=== PATIENT | male | born 1945 | race Caucasian/White ===

== ENCOUNTER 2022-04-29 14:59 | Inpatient (IN) | payer MEDICARE, OTHER ==
--- NOTE | 2022-04-29 15:21 | ED Physician Documentation ---
PD HPI Fall - Stated complaint Stated Complaint: GLF, R SIDE PAIN - History obtained from History obtained from: Family - History of Present Illness Mechanism of injury: Lost balance Fall distance: Standing position Where injury occurred: Home Timing - onset: How many days ago (2) Injury(ies) location: Chest, Abdomen Quality of pain: Pain Associated symptoms: No: LOC, AMS, Amnesia, Seizures, Ear drainage, Nasal drainage, Neck pain, Weakness, Paresthesias, Dyspnea, Nausea / vomiting, Hemat emesis, Abdominal distension Symptoms improve with: Rest Worsens with: Movement, Palpation Contributing factors: No: Anticoagulated Similar symptoms before: Has not had sx before Recently seen: Not recently seen - Additional information Additional information: Previously well Juanito Douglas is a 76-year-old male with advanced dementia. He has a history of some benign prostatic hypertrophy as well as some stents in his aorta and his iliacs. He was in his home 2 nights ago and he was shuffling wandering away from his bed and his went to redirect him and he collapsed and fell onto his right side. He is complaining of pain to the right side with movement. Review of Systems Constitutional: denies: Fever Eyes: denies: Decreased vision Ears: denies: Ear pain Nose: denies: Congestion Throat: denies: Sore throat Cardiac: reports: Chest pain / pressure. denies: Palpitations, Pedal edema, Calf pain Respiratory: denies: Dyspnea, Cough GI: reports: Abdominal Pain. denies: Vomiting, Diarrhea : denies: Dysuria, Frequency PD PAST MEDICAL HISTORY - Allergies Allergies/Adverse Reactions: Allergies Allergy/AdvReac Type Severity Reaction Status Date / Time acetaminophen [From Percocet] AdvReac Unknown Verified 04/29/22 16:35 oxycodone [From Percocet] AdvReac Unknown Verified 04/29/22 16:35 PD ED PE NORMAL - Vitals Vital signs reviewed: Yes - General General: No acute distress, Well developed/nourished, Other (standing in the ED the patient is clutching the right side. 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 No noncontrast evidence of solid organ injury. Moderate abdominal aortic aneurysm with aortobiiliac stent graft in place large amount of fecal debris in the right and transverse colon without evidence of small bowel obstruction), EMP read indepedently, See rad report CT chest w/o Radiology: Prelim report reviewed (Impression: 1. Posterior lateral 10th 11th and 12th posterior rib fractures associated with platelike atelectasis atelectasis in both lungs no pneumothorax), EMP read indepedently, See rad report PD MEDICAL DECISION MAKING - ED course Complexity details: reviewed results, re-evaluated patient, considered differential, d/w patient, d/w family ED course: 76-year-old male Juanito mcduffie has had a fall in his home and has broken 3 ribs posteriorly. He has some appearance of atelectasis on the right side. The patient's dementia is severe he mostly mumbles and occasionally brings 2 or 3 words together. He is not able to respond to questions with any appropriate answer. I was able to consult with our surgeon Dr. Mateus Angelo who will admit the patient to the hospital for conservative care. The patient is DNR. Departure - Departure Disposition: 66 [facility] DC/Xfer Clinical Impression: Traumatic closed fracture of multiple ribs with minimal displacement Qualifiers: Encounter type: initial encounter Laterality: right Qualified Code(s): S22.41XA - Multiple fractures of ribs, right side, initial encounter for closed fracture Condition: Stable
[2022-04-29] MEDS ORDERED: KETOROLAC 60 MG/2 ML VIAL IM STA (15:27)
[2022-04-29] MEDS ORDERED: LORazepam 2 MG/ML VIAL IM STA ×2 (15:28→16:08)
--- NOTE | 2022-04-29 17:05 | CT Report ---
PROCEDURE: CHEST WO INDICATIONS: fall R pain above and below the diaphragm TECHNIQUE: Noncontrast 1mm axial images were acquired from the pulmonary apices to the posterior costophrenic an gles. Axial 5 mm soft tissue kernel reconstructions were performed as well as 8 mm axial MIP and cor onal and sagittal 5 mm reformations. For radiation dose reduction, the following was used: automate d exposure control, adjustment of mA and/or kV according to patient size. COMPARISON: None FINDINGS: Image quality: Excellent. Lungs and pleura: Bibasilar platelike atelectasis. There is minimal pleural thickening noted anterior right middle lobe. No pneumothorax. Mediastinum: Heart size is normal. No pericardial effusion. No mediastinal adenopathy by size crit eria. Thoracic aorta and central pulmonary arteries are normal in size. Esophagus is normal in scar ring vascular calcification noted in the aortic arch. No aneurysm. Caliber. No hiatal hernia. Super ior mediastinal vascular clips present Bones and chest wall: No suspicious bony lesions. No vertebral body compression fractures. No axil tyrone or supraclavicular adenopathy by size criteria. The thyroid is normal in size and there are no incidental findings. Right 10th, 11th and 12th rib fractures posterolaterally. The 10th rib is fractu red in [address] IMPRESSION: 1. Right posterior lateral 10th, 11th and 12th posterior rib fractures associated with platelike atel ectasis both lung bases. No pneumothorax. Reviewed by: Frank Barrera MD on 04/29/2022 4:04 PM YINKA Approved by: Frank Barrera MD on 04/29/2022 4:04 PM AKDT Station ID: [id number]
--- NOTE | 2022-04-29 17:10 | CT Report ---
PROCEDURE: CT abdomen and pelvis without contrast INDICATIONS: fall onto R side pain above and below diaphram TECHNIQUE: Noncontrast 5 mm thick sections acquired from the diaphragms to the symphysis. 5 mm coronal and sagi ttal reformats were then performed. For radiation dose reduction, the following was used: automated exposure control, adjustment of mA and/or kV according to patient size. COMPARISON: None. FINDINGS: Image quality: Excellent. ABDOMEN: Solid organs: Liver and spleen are normal in size. Gallbladder not well visualized Pancreas is nor mal in contours. No adrenal nodules. Kidneys are normal in size, without hydronephrosis or nephroli thiasis. 2.5 cm simple cyst noted in the right hepatic lobe. No noncontrast evidence of solid organ injury bilateral renal cysts measure up to 4.5 cm on the right. No hydronephrosis Peritoneum and bowel: Unenhanced bowel loops demonstrate normal wall thickness and caliber. No free fluid or air. Moderate to large amount of fecal debris present in the right and transverse colon. Nodes and vessels: No retroperitoneal or mesenteric adenopathy by size criteria. Infrarenal aortic a bdominal aneurysm noted with aortobiiliac stent graft in place. Patency is not evaluated without cont rast. Surgical clips present in the pelvis. Miscellaneous: No ventral hernias. PELVIS: Genitourinary: Bladder wall thickness is normal. Miscellaneous: No inguinal hernias or adenopathy. Bones: No suspicious bony lesions. No vertebral body compression fractures. Advanced degenerative d isc disease and arthropathy in the lower lumbar spine. No fracture. IMPRESSION: 1. No noncontrast evidence of solid organ injury. 2. Moderate abdominal aortic aneurysm with aortobiiliac stent graft in place. 3. Large amount of fecal debris in the right and transverse colon without evidence of small bowel obs truction. Reviewed by: Frank Barrera MD on 04/29/2022 4:09 PM YINKA Approved by: Frank Barrera MD on 04/29/2022 4:09 PM AKASHKAN Station ID: [id number]
[2022-04-29 19:20] LABS: B. PARAPERTUSSIS- RESP PCR PAN NOT DETECTED; B. PERTUSSIS- RESP PCR PANEL NOT DETECTED; C. PNEUMONIAE- RESP PCR PANEL NOT DETECTED; CORONAVIRUS 229E-RESP PCR NOT DETECTED; CORONAVIRUS HKU1-RESP PCR NOT DETECTED; CORONAVIRUS NL63-RESP PCR NOT DETECTED; CORONAVIRUS OC43-RESP PCR NOT DETECTED; HUMAN METAPNEUMOVIRUS NOT DETECTED; INFLUENZA A- RESP PCR PANEL NOT DETECTED; INFLUENZA B - RESP PCR PANEL NOT DETECTED; M. PNEUMONIAE- RESP PCR PANEL NOT DETECTED; PARAINFLUENZA VIRUS 1 NOT DETECTED; PARAINFLUENZA VIRUS 2 NOT DETECTED; PARAINFLUENZA VIRUS 3 NOT DETECTED; PARAINFLUENZA VIRUS 4 NOT DETECTED; RHINOVIRUS/ENTEROVIRUS NOT DETECTED; RSV- RESP PCR PANEL NOT DETECTED; SARS-CoV-2 -RESP PCR PANEL NOT DETECTED
[2022-04-29] MEDS ORDERED: SODIUM CHLORIDE FLUSH 0.9% 10 ML SYRINGE IVP PRN (19:59)
[2022-04-29] MEDS ORDERED: HYDROmorphone 0.5 MG/0.5 ML SYRINGE IVP PRN (20:05)
[2022-04-29] MEDS ORDERED: HYDROmorphone 2 MG TABLET PO PRN (20:06)
[2022-04-29] MEDS ORDERED: risperiDONE 0.25 MG TABLET PO PRN (20:10)
[2022-04-29] MEDS ORDERED: traZODone 50 MG TABLET PO PRN (20:16)
--- NOTE | 2022-04-29 20:20 | HISTORY & PHYSICAL EXAMINATION ---
Chief Complaint - Chief Complaint Chief Complaint: pain and difficulty coughing per family History of Present Illness - Admitted From Admitted From:: ed - History Obtained From Records Reviewed: yes History obtained from: family Exam Limitations: dementia - History of Present Illness HPI Comment/Other: dementia and fall. not doing well at home. work up right rib fractures History - Past Medical History Neuro: reports: Dementia Other Past Medical History: cardiac stent Meds/Allgy - Allergies Allergies/Adverse Reactions: Allergies Allergy/AdvReac Type Severity Reaction Status Date / Time acetaminophen [From Percocet] AdvReac Unknown Verified 04/29/22 16:35 oxycodone [From Percocet] AdvReac Unknown Verified 04/29/22 16:35 Review of Systems - Other Findings Other Findings: 10 pt ros as above otherwise unremarkable Exam - Vital Signs Reviewed Vital Signs: Yes Vital Signs: Vital Signs x48h Temp Pulse Resp BP Pulse Ox 04/29/22 19:05 57 L 18 130/77 100 04/29/22 17:30 71 16 131/85 H 100 04/29/22 15:30 37.2 C 69 16 109/77 100 04/29/22 15:22 37.2 C 69 16 109/77 100 - Physical Exam General Appearance: positive: Other (resting comfortably) ENT: positive: No signs of dehydration Neck: positive: No JVD, Trachea midline Respiratory: positive: No respiratory distress, Breath sounds nml Cardiovascular: positive: Regular rate & rhythm Abdomen: positive: Non-tender, No distention Neurologic/Psychiatric: positive: Other (resting comfortably. per family ambulatory. does not talk)
[2022-04-29] MEDS: D5.45NS W/20 MEQ KCL 1,000 ML IV SCH (21:20)
[2022-04-29] MEDS: MEMANTINE 5 MG TABLET PO SCH (22:42)
[2022-04-29] MEDS: KETOROLAC 15 MG/ML VIAL IVP SCH (23:45)
[2022-04-29] MEDS: SODIUM CHLORIDE FLUSH 0.9% 10 ML SYRINGE IVP SCH (23:46)
[2022-04-30] MEDS: KETOROLAC 15 MG/ML VIAL IVP SCH ×3 (06:54→17:31)
[2022-04-30 07:19] LABS: CALCIUM 9.3 mg/dL (8.5-10.3); POTASSIUM 4.2 mmol/L (3.5-5.0)
[2022-04-30] MEDS: D5.45NS W/20 MEQ KCL 1,000 ML IV SCH (08:00)
--- NOTE | 2022-04-30 08:22 | XRAY Report ---
PROCEDURE: Chest 1 View X-Ray INDICATIONS: fall with rib fxs TECHNIQUE: One view of the chest was acquired. COMPARISON: None FINDINGS: Surgical changes and devices: Mediastinal surgical clips. Study is limited by rotation Lungs and pleura: No pleural effusions or pneumothorax. Lungs are clear. Mediastinum: Mediastinal contours appear normal. Heart size is normal. Bones and chest wall: No suspicious bony lesions. Overlying soft tissues appear unremarkable. IMPRESSION: No acute cardiopulmonary findings Limited exam Reviewed by: Frank Barrera MD on 04/30/2022 7:20 AM AKASHKAN Approved by: Frank Barrera MD on 04/30/2022 7:20 AM AKDT Station ID: [id number]
[2022-04-30] MEDS: ENOXAPARIN 40 MG/0.4 ML SYRINGE SUBQ SCH (09:28)
[2022-04-30] MEDS: MEMANTINE 5 MG TABLET PO SCH ×2 (09:29→21:48)
[2022-04-30] MEDS: polyethylene glycoL 3350 17 GM PACKET PO SCH (09:29)
[2022-04-30] MEDS: SODIUM CHLORIDE FLUSH 0.9% 10 ML SYRINGE IVP SCH ×2 (09:30→17:31)
[2022-04-30] MEDS: FINASTERIDE 5 MG TABLET PO SCH (09:30)
--- NOTE | 2022-04-30 13:08 | PROVIDER PROGRESS NOTE ---
Subjective - Prog Note Date Prog Note Date: 04/30/22 - Subjective Pt reports feeling: No change Objective - Vital Signs/Intake & Output Reviewed Vital Signs: Yes Vital Signs: Vital Signs x48h Temp Pulse Resp BP Pulse Ox 04/30/22 08:00 36.2 C L 52 L 16 130/66 99 Intake & Output: Intake & Output 04/27/22 04/28/22 04/29/22 04/30/22 23:59 23:59 23:59 23:59 Intake Total 1250 Balance 1250 - Objective General Appearance: positive: Alert, Mild distress, Other (pain with coughing) Eyes Bilateral: positive: PERRL, EOMI Neck: positive: No JVD, Trachea midline Respiratory: positive: No respiratory distress Abdomen: positive: Non-tender, No distention Neurologic/Psychiatric: positive: Other (no focal deficits. does not communicate or follow commands per his baseline able to swallow safely) - Lab Results Fish Bones: 04/30/22 06:55 Other Labs: Lab Results x24hrs 04/30/22 04/29/22 Range/Units 06:55 18:20 Sodium 140 (135-145) mmol/L Potassium 4.2 (3.5-5.0) mmol/L Chloride 106 (101-111) mmol/L Carbon Dioxide 25 (21-32) mmol/L Anion Gap 9.0 (6-13) BUN 23 H (6-20) mg/dL Creatinine 1.0 (0.6-1.2) mg/dL Estimated GFR (MDRD) 72 L (>89) Glucose 105 H (70-100) mg/dL Calcium 9.3 (8.5-10.3) mg/dL Nasal Adenovirus (PCR) NOT DETECTED Nasal B. parapertussis DNA (PCR) NOT DETECTED Nasal Coronavir 229E PCR NOT DETECTED Nasal Coronavir HKU1 PCR NOT DETECTED Nasal Coronavir NL63 PCR NOT DETECTED Nasal Coronavir OC43 PCR NOT DETECTED Nasal Enterovir/Rhinovir PCR NOT DETECTED Nasal Influenza B PCR NOT DETECTED Nasal Influenza A PCR NOT DETECTED Nasal Parainfluen 1 PCR NOT DETECTED Nasal Parainfluen 2 PCR NOT DETECTED Nasal Parainfluen 3 PCR NOT DETECTED Nasal Parainfluen 4 PCR NOT DETECTED Nasal RSV (PCR) NOT DETECTED Nasal B.pertussis DNA PCR NOT DETECTED Nasal C.pneumoniae (PCR) NOT DETECTED Taco Human Metapneumo PCR NOT DETECTED Nasal M.pneumoniae (PCR) NOT DETECTED Nasal SARS-CoV-2 (PCR) NOT DETECTED Assessment/Plan - Problem List (1) Traumatic closed fracture of multiple ribs with minimal displacement Impression: fall with rib fractures. still painful requiring iv pain meds plan pt consult social work consult contiuned inpatient care with iv pain meds. inpatient admit Qualifiers: Encounter type: initial encounter Laterality: right Qualified Code(s): S22.41XA - Multiple fractures of ribs, right side, initial encounter for closed fracture
[2022-04-30] MEDS ORDERED: LORazepam 2 MG/ML VIAL IVP PRN (16:19)
[2022-04-30] MEDS: risperiDONE 0.25 MG TABLET PO SCH ×2 (16:31→21:48)
[2022-04-30] MEDS ORDERED: risperiDONE 0.25 MG TABLET PO SCH (21:00)
[2022-04-30] MEDS: DOCUSATE SODIUM 250 MG CAPSULE PO SCH (21:47)
[2022-04-30] MEDS: FAMOTIDINE 20 MG TABLET PO SCH (21:48)
[2022-04-30] MEDS: SENNA 8.6 MG TABLET PO SCH (21:48)
[2022-05-01] MEDS: SODIUM CHLORIDE FLUSH 0.9% 10 ML SYRINGE IVP SCH ×3 (00:25→18:50)
[2022-05-01] MEDS ORDERED: BISACODYL 10 MG SUPP PR ONE (09:00)
[2022-05-01] MEDS ORDERED: risperiDONE 0.25 MG TABLET PO SCH (09:00)
[2022-05-01] MEDS: ENOXAPARIN 40 MG/0.4 ML SYRINGE SUBQ SCH (09:25)
[2022-05-01] MEDS: polyethylene glycoL 3350 17 GM PACKET PO SCH (09:26)
[2022-05-01] MEDS: KETOROLAC 15 MG/ML VIAL IVP PRN ×2 (09:26→18:47)
--- NOTE | 2022-05-01 09:44 | PROVIDER PROGRESS NOTE ---
Subjective - Subjective Pt reports feeling: No change (painful requiring iv pain meds) Objective - Vital Signs/Intake & Output Vital Signs: Vital Signs x48h Temp Pulse Resp BP Pulse Ox 05/01/22 08:00 36.5 C 55 L 18 146/70 H 99 Intake & Output: Intake & Output 04/28/22 04/29/22 04/30/22 05/01/22 23:59 23:59 23:59 23:59 Intake Total 2360 120 Output Total 425 200 Balance 1934 - Objective General Appearance: positive: No acute distress Eyes Bilateral: positive: PERRL, EOMI ENT: positive: No signs of dehydration Neck: positive: Trachea midline Respiratory: positive: No respiratory distress Abdomen: positive: Non-tender, No distention Neurologic/Psychiatric: positive: Oriented x3 - Lab Results Fish Bones: 04/30/22 06:55 Assessment/Plan - Problem List (1) Traumatic closed fracture of multiple ribs with minimal displacement Impression: fall with rib fractures d/c planning social work consult Qualifiers: Encounter type: initial encounter Laterality: right Qualified Code(s): S22.41XA - Multiple fractures of ribs, right side, initial encounter for closed fracture
[2022-05-01] MEDS: MEMANTINE 5 MG TABLET PO SCH (09:50)
[2022-05-01] MEDS: SENNA 8.6 MG TABLET PO SCH (09:50)
[2022-05-01] MEDS: FAMOTIDINE 20 MG TABLET PO SCH (09:50)
[2022-05-01] MEDS: FINASTERIDE 5 MG TABLET PO SCH (09:50)
[2022-05-01] MEDS: DOCUSATE SODIUM 250 MG CAPSULE PO SCH (09:57)
[2022-05-01] MEDS: risperiDONE 0.25 MG TABLET PO SCH ×2 (11:18→18:18)
--- NOTE | 2022-05-01 15:06 | PHARMACY PROGRESS NOTE ---
- Best Possible Medication History Admit Date and Time: 04/30/22 4399 Processed by: Pharmacy Medication History completed: Yes Patient Interview: Pt unable to participate Secondary Source(s): Written medication list, Spouse/Significant other, Physi hedy records, Pharmacy records, Insurance records As the person ultimately responsible for medication therapy, providers are able to order a medication from an existing home medication list in [facility] via the "Reconcile Routine" prior to Confirmation of that medication by is support analyst. Such practice is discouraged except when the physician, in their clinical judgment, deems that a medical need exists for a medication without regard to previous use.
--- NOTE | 2022-05-01 18:33 | Discharge Plan ---
Discharge Plan Problem Reviewed?: Yes Disposition: Home, Self Care Condition: Fair Prescriptions: traMADol [Ultram] 50 mg PO Q6H PRN #30 tablet PRN Reason: Pain Diet: Regular Activity Restrictions: No Restrictions Shower Restrictions: No Driving Restrictions: Yes Health Concerns: rib fractures and dementia Plan of Treatment: pain control Assessment: doing ok Additional Instructions or Follow Up instructions: call the surgery office with any questions or concerns [phone] No Smoking: If you smoke, Please STOP! Call for help. Follow-up with: MONTRELL CARSON MD [Primary Care Provider] -
[2022-05-01 20:24] VITALS: BP 118/75
[2022-05-02] MEDS ORDERED: MULTIVITAMIN W/MINERALS TABLET PO SCH (08:00)
== END 2022-05-01 19:15 | disposition home or self-care (01) | DRG 185 ==
LOC: ED 14:59 → MS3 19:59 → OBSVTOIN 04-30 13:05
PROVIDERS: ADMIT Surgery; ATTEND Surgery
DX: S22.41XA Multiple fractures of ribs, right side, initial encounter for closed fracture (principal); W18.30XA Fall on same level, unspecified, initial encounter; Y92.003 Bedroom of unspecified non-institutional (private) residence as the place of occurrence of the external cause; N40.0 Benign prostatic hyperplasia without lower urinary tract symptoms; Z66 Do not resuscitate; Z95.820 Peripheral vascular angioplasty status with implants and grafts; Z20.822 Contact with and (suspected) exposure to COVID-19; F03.90 Unspecified dementia, unspecified severity, without behavioral disturbance, psychotic disturbance, mood disturbance, and anxiety; Z95.5 Presence of coronary angioplasty implant and graft
CPT/HCPCS: 36415; 71045; 71250; 74176; 80048; 87633; 96361; 96372; 96374; 96376; 97163; 99283; 99285; A9270; G0378; J1650; J2060